=== PATIENT | female | born 1980 | race African-American/Black ===

== ENCOUNTER 2018-06-05 10:24 | Observation (INO) | payer SELFPAY ==
[2018-06-05 10:57] LABS: Absolute Lymphocytes (CBC) 1.4 K/uL (0.7-4.9); Absolute Monocytes 0.5 K/uL (0.1-1.3); Absolute Neutrophil 4.9 K/uL (1.8-8.0); Basophils % 0.6 % (0-1.3); Eosinophils % 0.7 % (0-4.4); Hematocrit 32.5 % (36.0-45.0); Lymphocytes % 19.9 % (15.3-44.8); MCV 74.1 fL (80-100); Monocytes % 7.1 % (3.3-12.3); RBC Red Blood Cell Count 4.39 M/uL (3.86-4.86)
[2018-06-05] MEDS ORDERED: NA CHLORIDE 0.9% 1,000 ML ONE ×2 (10:59→12:04)
[2018-06-05] MEDS ORDERED: EPINEPHRINE/PF 1 MG/ML AMP ONE (10:59)
[2018-06-05] MEDS ORDERED: METHYLPREDNISOLONE 125 MG INJ ONE (10:59)
[2018-06-05] MEDS ORDERED: FAMOTIDINE 20 MG/2 ML VIAL IV ONE (11:00)
[2018-06-05 11:03] LABS: Potassium 3.4 mmol/L (3.5-5.1)
--- NOTE | 2018-06-05 12:00 | EDPHYS ---
Physician Documentation [facility] Name: Jose Velez Age: 38 yrs Sex: Female : 1980 Arrival Date: 06/05/2018 Time: 10:25 Bed 4 Private MD: None, None ED Physician Arnold Maldonado HPI: 06/05 11:43 This 38 yrs old Black Female presents to ER via Ambulatory with complaints of Allergic gs Reaction. 11:43 The patient presents with swelling of the lips. Onset: The symptoms/episode gs began/occurred acutely, just prior to arrival. Associated signs and symptoms: Pertinent negatives: chest pain, Light headed shortness of breath, Syncope. Possible causes: KARLY inhibitor. Severity of symptoms: At their worst the symptoms were moderate in the emergency department the symptoms are unchanged. The patient has not experienced similar symptoms in the past. 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 - Social history:: Smoking status: Patient/guardian denies using tobacco. - Ebola Screening: : Patient negative for fever greater than or equal to 101.5 degrees Fahrenheit, and additional compatible Ebola Virus Disease symptoms Patient denies exposure to infectious person Patient denies travel to an Ebola-affected area in the 21 days before illness onset No symptoms or risks identified at this time. ROS: 11:56 All other systems are negative. gs Exam: 11:56 Neck: Trachea midline, no thyromegaly or masses palpated, and no cervical gs lymphadenopathy. Supple, full range of motion without nuchal rigidity, or vertebral point tenderness. No Meningismus. Chest/axilla: Normal chest wall appearance and motion. Nontender with no deformity. No lesions are appreciated. Cardiovascular: Regular rate and rhythm with a normal S1 and S2. No gallops, murmurs, or rubs. Normal PMI, no JVD. No pulse deficits. Abdomen/GI: Soft, non-tender, with normal bowel sounds. No distension or tympany. No guarding or rebound. No evidence of tenderness throughout. Back: No spinal tenderness. No costovertebral tenderness. Full range of motion. Skin: Warm, dry with normal turgor. Normal color with no rashes, no lesions, and no evidence of cellulitis. MS/ Extremity: Pulses equal, no cyanosis. Neurovascular intact. Full, normal range of motion. Neuro: Awake and alert, GCS 15, oriented to person, place, time, and situation. Cranial nerves II-XII grossly intact. Motor strength 5/5 in all extremities. Sensory grossly intact. Cerebellar exam normal. Normal gait. 11:56 Constitutional: The patient appears alert, awake. 11:56 Head/face: Noted is swelling, that is moderate, of the right eye, right cheek and right zygomatic area. 11:56 ENT: Mouth: Lips: swelling, Posterior pharynx: no acute changes, pooling of secretions, is not appreciated. 11:56 Neck: Exam negative for acute changes. 11:56 Respiratory: the patient does not display signs of respiratory distress, Respirations: normal, Breath sounds: are clear throughout, stridor, is not appreciated. Vital Signs: 10:36 BP 108 / 80; Pulse 102; Resp 23; Pulse Ox 100% ; Weight 86.18 kg; Height 5 ft. 5 in. bp (165.10 cm); 10:38 Temp 98.2(TE); jb1 11:00 BP 98 / 72; Pulse 80; Resp 20; Pulse Ox 100% ; bp 12:08 BP 99 / 72; Pulse 77; Resp 23; Pulse Ox 99% ; bp 10:36 Body Mass Index 31.62 (86.18 kg, 165.10 cm) bp MDM: 10:26 Patient medically screened. gs 11:56 Differential diagnosis: anaphylaxis, angioedema, bronchospasm, non IgE mediated drug gs reaction. Data reviewed: vital signs, nurses notes. Response to treatment: the patient's symptoms have mildly improved after treatment, and as a result, I will admit patient. 06/05 10: Order name: CBC with Diff; Complete Time: 11:42 gs 06/05 10: Order name: Basic Metabolic Panel; Complete Time: 11:42 gs Administered Medications: 10: Drug: Pepcid 20 mg Route: IVP; Site: right antecubital; bp 12:09 Follow up: Response: No change in condition bp 10:27 Drug: SOLU-Medrol 125 mg Route: IVP; Site: right antecubital; bp 12:09 Follow up: Response: No change in condition bp 10: Drug: EPINEPHrine 1mg/mL 1:1,000 0.2 ml Route: Sub-Q; Site: right upper arm; bp 12:09 Follow up: Response: No change in condition bp 11:00 Drug: NS 0.9% 1000 ml Route: IV; Rate: 125 ml/hr; Site: right antecubital; bp 12:00 Drug: NS 0.9% 1000 ml Route: IV; Rate: 1 bolus; Site: right antecubital; aa5 Disposition: 06/05/18 11:59 Hospitalization ordered by Maureen Dick for Observation. Preliminary diagnosis is Angioneurotic edema. - Bed requested for Telemetry/MedSurg (observation). - Status is Observation. bp - Condition is Stable. - Problem is new. - Symptoms have improved. UTI on Admission? No Critical care time excluding procedures: 11:56 Critical care time: Bedside Care: 10 minutes, Consultation: 10 minutes, Family gs Intervention: 10 minutes. Total time: 30 minutes Signatures: Dispatcher [employer] EDThu Jeronimo RN Casandra Quinones RN RN dw Calderon, Audri, RN RN aa Arnold Maldonado MD MD gs Peltier, Brian, RN RN bp Corrections: (The following items were deleted from the chart) 12:52 11:59 Hospitalization Ordered by Maureen Dick MD for Observation. Preliminary dw diagnosis is Angioneurotic edema. Bed requested for Telemetry/MedSurg (observation). Status is Observation. Condition is Stable. Problem is new. Symptoms have improved. UTI on Admission? No. gs 14:10 12:52 06/05/2018 11:59 Hospitalization Ordered by Maureen Dick MD for Observation. bp Preliminary diagnosis is Angioneurotic edema. Bed requested for Telemetry/MedSurg (observation). Status is Observation. Condition is Stable. Problem is new. Symptoms have improved. UTI on Admission? No. dw
--- NOTE | 2018-06-05 12:00 | ER ---
Nurse's Notes [facility] Name: Jose Velez Age: 38 yrs Sex: Female : 1980 Arrival Date: 06/05/2018 Time: 10:25 Bed 4 Private MD: None, None Diagnosis: Angioneurotic edema Presentation: 06/05 10:25 Presenting complaint: Patient states: pt took a blue pill BO1 last night at 2300 sv thinking it was Aleve. Pt has significant swelling to right side of face and lips. Transition of care: patient was not received from another setting of care. Onset: The symptoms/episode began/occurred acutely, this morning. Anaphylaxis evaluation, angioedema. Onset of symptoms was June 05, 2018. Care prior to arrival: None. 10:25 Method Of Arrival: Ambulatory sv 10:25 Acuity: DARRIN 2 sv 13:27 Risk Assessment: Do you want to hurt yourself or someone else? Patient reports no bp desire to harm self or others. Initial Sepsis Screen: Does the patient meet any 2 criteria? No. Patient's initial sepsis screen is negative. Does the patient have a suspected source of infection? No. Patient's initial sepsis screen is negative. Triage Assessment: 10:25 General: Appears distressed, uncomfortable, Behavior is cooperative, anxious. EENT: sv upper and lower lip swelling and tongue swelling. Neuro: Level of Consciousness is awake, alert, obeys commands, Oriented to person, place, time, situation, Moves all extremities. Full function Gait is steady. Respiratory: Respiratory effort is even, unlabored, Respiratory pattern is symmetrical, tachypnea. 10:35 General: Appears distressed, uncomfortable, Behavior is cooperative, appropriate for bp age, anxious. Pain: Denies pain. EENT: SWOLLEN LIPS AND TONGUE. [employer]: 10:36 LMP N/A - Irregular menses bp Historical: - Allergies: 10:26 No Known Allergies; sv - Immunization history:: Adult Immunizations up to date. - Social history:: Smoking status: Patient/guardian denies using tobacco. - Ebola Screening: : Patient negative for fever greater than or equal to 101.5 degrees Fahrenheit, and additional compatible Ebola Virus Disease symptoms Patient denies exposure to infectious person Patient denies travel to an Ebola-affected area in the 21 days before illness onset No symptoms or risks identified at this time. Screenin:44 Abuse screen: Denies threats or abuse. Denies injuries from another. Nutritional bp screening: No deficits noted. Tuberculosis screening: No symptoms or risk factors identified. Fall Risk None identified. Assessment: 10:25 General: Appears distressed, uncomfortable, obese, Behavior is cooperative, appropriate bp for age, anxious. Pain: Denies pain. Neuro: Level of Consciousness is awake, alert, obeys commands, Oriented to person, place, time, situation, Appropriate for age. Cardiovascular: No deficits noted. Respiratory: Airway is compromised Respiratory effort is even, unlabored, Respiratory pattern is regular, symmetrical, Breath sounds are clear bilaterally. GI: No signs and/or symptoms were reported involving the gastrointestinal system. : No signs and/or symptoms were reported regarding the genitourinary system. EENT: SWOLLEN LIPS/TONGUE. Derm: No deficits noted. Musculoskeletal: Circulation, motion, and sensation intact. Range of motion: intact in all extremities. 11:03 Reassessment: NO NOTED CHANGED TO ANGIOEDEMA, PT RESP REMAINS EVEN AND UNLABORED. bp 12:07 Reassessment: NO NOTABLE IMPROVEMENT TO ANGIOEDEMA, ADMIT IN PROCESS. bp Vital Signs: 10:36 BP 108 / 80; Pulse 102; Resp 23; Pulse Ox 100% ; Weight 86.18 kg; Height 5 ft. 5 in. bp (165.10 cm); 10:38 Temp 98.2(TE); jb1 11:00 BP 98 / 72; Pulse 80; Resp 20; Pulse Ox 100% ; bp 12:08 BP 99 / 72; Pulse 77; Resp 23; Pulse Ox 99% ; bp 10:36 Body Mass Index 31.62 (86.18 kg, 165.10 cm) bp ED Course: 10:25 Patient arrived in ED. mr 10:25 None, None is Private Physician. mr 10:25 Inserted saline lock: 20 gauge in right antecubital area, using aseptic technique. bp 10:26 Arnold Maldonado MD is Attending Physician. gs 10:26 Triage completed. sv 10:26 Arm band placed on. sv 10:34 Homero Fung, MARVA is Primary Nurse. bp 10:44 Patient has correct armband on for positive identification. Bed in low position. Call bp light in reach. Side rails up X2. clinical research monitor on. Pulse ox on. NIBP on. 11:58 Maureen Dick MD is Hospitalizing Provider. gs 13:26 No provider procedures requiring assistance completed. Patient admitted, IV remains in bp place. Administered Medications: 10:27 Drug: Pepcid 20 mg Route: IVP; Site: right antecubital; bp 12:09 Follow up: Response: No change in condition bp 10:27 Drug: SOLU-Medrol 125 mg Route: IVP; Site: right antecubital; bp 12:09 Follow up: Response: No change in condition bp 10:27 Drug: EPINEPHrine 1mg/mL 1:1,000 0.2 ml Route: Sub-Q; Site: right upper arm; bp 12:09 Follow up: Response: No change in condition bp 11:00 Drug: NS 0.9% 1000 ml Route: IV; Rate: 125 ml/hr; Site: right antecubital; bp 12:00 Drug: NS 0.9% 1000 ml Route: IV; Rate: 1 bolus; Site: right antecubital; aa5 Outcome: 11:59 Decision to Hospitalize by Provider. gs 13:27 Condition: stable bp 13:27 Instructed on the need for admit. 13:33 Admitted to Tele accompanied by tech, via wheelchair, room 212, with chart, Report bp called to MANUEL DURHAM 14:10 Patient left the ED. bp Signatures: Adam Montano jbThu Mar, RN RN Cherry Manzo mr Bishop, Mona RN RN aa5 Arnold Maldonado MD MD Homero Fung RN RN bp
[2018-06-05] MEDS ORDERED: ONDANSETRON 4 MG/2 ML VIAL IV PRN (14:01)
[2018-06-05] MEDS: NA CHLORIDE 0.9% 1,000 ML IV SCH ×2 (14:01→19:19)
[2018-06-05] MEDS ORDERED: DIPHENHYDRAMINE 50 MG/ML VIAL IV SCH (14:01)
[2018-06-05] MEDS ORDERED: EPINEPHRINE 1 MG/ML VIAL SQ ONE (15:41)
--- NOTE | 2018-06-05 15:57 | P.HP ---
Certification for Inpatient Patient admitted to: Observation With expected LOS: <2 Midnights Patient will require the following post-hospital care: None Practitioner: I am a practitioner with admitting privileges, knowledge of patient current condition, hospital course, and medical plan of care. Services: Services provided to patient in accordance with Admission requirements found in Title 42 Section 412.3 of the Code of Federal Regulations Patient History Date of Service: 06/05/18 Primary Care Provider: None Reason for admission: Angioedema History of Present Illness: 38 y/o F with No PMHx presented to the ED after she took lisinopril this AM at 11AM thinking it was Aleve. Pt started noticing her right face swell and got worries and thus decided to come to the ER. Patient has never had similar Complains in the past. Denies having SOB, chest pain, trouble swallowing or have not seen tongue swelling. Allergies lisinopril Allergy (Verified 06/05/18 13:39) Anaphylaxis Home Medications: NK [No Home Meds] 06/05/18 - Past Medical/Surgical History Has patient received pneumonia vaccine in the past: No Diabetic: No Past Medical History: Patient denies medical history Past Surgical History: Patient denies surgical history - Family History Family History: Reviewed- Non-Contributory - Social History Smoking Status: Never smoker Smoking therapy provided: No Patient receptive to therapy: No Alcohol use: Yes CD- Drugs: No Caffeine use: Yes Place of Residence: Home Review of Systems 10-point ROS is otherwise unremarkable Physical Examination - Vital Signs Temperature: 98.2 F Blood Pressure: 99/72 Pulse: 77 Respirations: 23 - Physical Exam General: Alert, In no apparent distress HEENT: Atraumatic, PERRLA, Mucous membr. moist/pink, Other (Right Face Swollen and Upper and lower lip swelling noted. ), EOMI, Sclerae nonicteric Neck: Supple, 2+ carotid pulse no bruit, No LAD, Without JVD or thyroid abnormality Respiratory: Clear to auscultation bilaterally, Normal air movement Cardiovascular: Regular rate/rhythm, Normal S1 S2 Gastrointestinal: Normal bowel sounds, No tenderness Musculoskeletal: No tenderness Integumentary: No rashes Neurological: Normal gait, Normal speech, Normal strength at 5/5 x4 extr, Normal tone, Normal affect Lymphatics: No axilla or inguinal lymphadenopathy - Studies Laboratory Data (last 24 hrs) 06/05/18 10:40: Sodium 138, Potassium 3.4 L, BUN 12, Creatinine 0.90, Glucose 112 H 06/05/18 10:40: WBC 6.8, Hgb 10.1 L, Hct 32.5 L, Plt Count 420 H Assessment and Plan - Problems (Diagnosis) (1) Angio-edema Current Visit: Yes Status: Acute Plan: Angioedema 2.2 to KARLY inhibitor w/o Respiratory Compromise -Benadryl 50mg q6h -Methylprednisone 40mg q8h -Epi x 1 Qualifiers: Encounter type: initial encounter Qualified Code(s): T78.3XXA - Angioneurotic edema, initial encounter Discharge Plan: Home Plan to discharge in: 48 Hours - Advance Directives Does patient have a Living Will: No Does patient have a Durable POA for Healthcare: No - Code Status/Comfort Care Code Status Assessed: Yes Critical Care: No
[2018-06-05] MEDS ORDERED: DIPHENHYDRAMINE 25 MG TAB/CAP PO SCH (16:00)
[2018-06-05] MEDS: DIPHENHYDRAMINE 25 MG TAB/CAP PO SCH ×2 (16:02→22:16)
[2018-06-05] MEDS: METHYLPREDNISOLONE 40 MG INJ IV SCH (16:03)
[2018-06-05 18:34] LABS: Urine Appearance CLEAR; Urine Bilirubin NEGATIVE (NEG); Urine Blood NEGATIVE (NEG); Urine Color YELLOW; Urine Glucose 3+ (NEG); Urine Protein NEGATIVE (NEG); Urine Specific Gravity 1.015 (1.005-1.030); Urine Urobilinogen 0.2 mg/dL (0.2-1.0); Urine pH 5.5 (5.0-7.0)
[2018-06-05 18:37] LABS: Urine Microscopic Reflex ORDER UMIC
[2018-06-05 18:48] LABS: Urine Culture Reflex Order REFLEXED; Urine RBC <5 /HPF (NONE SEEN)
[2018-06-05 18:50] LABS: Urine Bacteria 20-50 /HPF (<20)
[2018-06-06] MEDS: NA CHLORIDE 0.9% 1,000 ML IV SCH ×3 (01:08→17:33)
[2018-06-06] MEDS: METHYLPREDNISOLONE 40 MG INJ IV SCH ×3 (01:08→17:33)
[2018-06-06] MEDS: ACETAMINOPHEN 500 MG TAB PO PRN ×2 (03:55→17:32)
[2018-06-06] MEDS: DIPHENHYDRAMINE 25 MG TAB/CAP PO SCH ×4 (03:56→21:57)
[2018-06-06 06:27] LABS: Absolute Lymphocytes (CBC) 0.4 K/uL (0.7-4.9); Absolute Monocytes 0.3 K/uL (0.1-1.3); Absolute Neutrophil 9.7 K/uL (1.8-8.0); Basophils % 0.1 % (0-1.3); Hematocrit 29.3 % (36.0-45.0); MCH 23.6 pg (27.0-35.0); MCV 74.9 fL (80-100); MPV 8.1 fL (7.6-11.3); Monocytes % 3.2 % (3.3-12.3); RBC Red Blood Cell Count 3.92 M/uL (3.86-4.86)
[2018-06-06 06:47] LABS: ALT/SGPT 21 U/L (12-78); AST/SGOT 13 U/L (15-37); Albumin 3.1 g/dL (3.4-5.0); Alkaline Phosphatase 39 U/L (45-117); BUN Blood Urea Nitrogen 9 mg/dL (7-18); Bicarbonate 20 mmol/L (21-32); Bilirubin Total 0.2 mg/dL (0.2-1.0); Glucose Level 154 mg/dL (74-106); Potassium 4.3 mmol/L (3.5-5.1); Sodium Level 139 mmol/L (136-145)
[2018-06-06 07:05] LABS: Anisocytosis 1+; Blood Morphology Comment NOTED (NOT SEEN); Platelet Estimate INCR; Poikilocytosis 1+; Spherocyte 1+; Urine White Blood Cell Casts OK
[2018-06-06] MEDS ORDERED: EPINEPHrine 1 MG/10 ML SYR IV ONE (09:49)
[2018-06-06] MEDS ORDERED: EPINEPHRINE 1 MG/ML VIAL SQ ONE (11:00)
--- NOTE | 2018-06-06 11:12 | P.PN ---
Subjective Date of Service: 06/06/18 Primary Care Provider: None Chief Complaint: Angioedema Subjective: Tolerating diet, Ambulating, Improving, Working w/ PT, Doing well Review of Systems 10-point ROS is otherwise unremarkable Physical Examination - Vital Signs Temperature: 97.9 F Blood Pressure: 119/69 Pulse: 92 Respirations: 16 Pulse Ox (%): 99 - Physical Exam General: Alert, In no apparent distress HEENT: Atraumatic, PERRLA, EOMI Neck: Supple, JVD not distended, Other (Facial Swelling improving with Lower lip swelling improved markedly \) Respiratory: Clear to auscultation bilaterally, Normal air movement Cardiovascular: Regular rate/rhythm, Normal S1 S2 Gastrointestinal: Normal bowel sounds, No tenderness Musculoskeletal: No tenderness Integumentary: No rashes Neurological: Normal speech, Normal tone, Normal affect Lymphatics: No axilla or inguinal lymphadenopathy - Studies Medications List Reviewed: Yes Assessment And Plan - Current Problems (Diagnosis) (1) Angio-edema Onset Date: 06/06/18 Current Visit: Yes Status: Acute Plan: Angioedema 2.2 to KARLY inhibitor w/o Respiratory Compromise -Benadryl 50mg q6h -Methylprednisone 40mg q8h -Epi x 1 today as well Qualifiers: Encounter type: initial encounter Qualified Code(s): T78.3XXA - Angioneurotic edema, initial encounter Discharge Plan: Home Plan to discharge in: 24 Hours - Code Status/Comfort Care Code Status Assessed: Yes Critical Care: No
[2018-06-07] MEDS: METHYLPREDNISOLONE 40 MG INJ IV SCH ×2 (00:11→08:51)
[2018-06-07] MEDS: NA CHLORIDE 0.9% 1,000 ML IV SCH (00:14)
[2018-06-07] MEDS: DIPHENHYDRAMINE 25 MG TAB/CAP PO SCH ×2 (03:17→08:52)
[2018-06-07 04:58] LABS: Absolute Lymphocytes (CBC) 0.6 K/uL (0.7-4.9); Absolute Monocytes 0.4 K/uL (0.1-1.3); Absolute Neutrophil 12.2 K/uL (1.8-8.0); Hematocrit 28.7 % (36.0-45.0); Lymphocytes % 4.9 % (15.3-44.8); MCH 22.7 pg (27.0-35.0); MCV 73.6 fL (80-100); MPV 8.2 fL (7.6-11.3); Monocytes % 3.1 % (3.3-12.3)
[2018-06-07 05:04] LABS: ALT/SGPT 21 U/L (12-78); AST/SGOT 15 U/L (15-37); Albumin 3.1 g/dL (3.4-5.0); Alkaline Phosphatase 33 U/L (45-117); BUN Blood Urea Nitrogen 7 mg/dL (7-18); Bicarbonate 24 mmol/L (21-32); Bilirubin Total 0.2 mg/dL (0.2-1.0); Glucose Level 141 mg/dL (74-106); Potassium 4.3 mmol/L (3.5-5.1); Protein, Total 7.1 g/dL (6.4-8.2); Sodium Level 141 mmol/L (136-145)
[2018-06-07] MEDS: ACETAMINOPHEN 500 MG TAB PO PRN (08:51)
[2018-06-07 13:53] LABS: Specific Gravity <= 1.005 (1.005-1.030)
--- NOTE | 2018-06-08 04:28 | DS ---
Date of Discharge: 06/07/2018 Admitting Diagnosis: Angioedema. Discharge Diagnoses: 1. Angioedema secondary to KARLY inhibitor. 2. Obesity, BMI 32.6. 3. Irregular menstrual cycle. 4. Acute cystitis without hematuria secondary to gram-negative bacteria. 5. Microcytic hypochromic anemia with iron deficiency anemia. Hospital Course: The patient is a 38-year-old female with no significant past medical history, comes in with angioedema following accidental ingestion of lisinopril. The patient thought it was Aleve as it was in bottle at her friend' s house. The patient denies any trouble swallowing or any shortness of breath. The patient was started on Solu-Medrol and Benadryl and was given epinephrine x1. The patient's workup did reveal some microcytic anemia. Her white count was initially normal and she did have some steroid-induced leukocytosis. No signs of sepsis. The patient did have some mild hypokalemia, which was replaced. Her UA was abnormal and her urine culture grew out gram-negative rods. ID is currently pending. I did speak that microbiology lab should be updated later this afternoon. The patient's symptoms improved. Her swelling has greatly improved significantly, and not quite resolved. She denies any further shortness of breath or difficulty swallowing. The patient was able to ambulate without getting short of breath. No desaturation. The patient was then cleared for discharge and was sent home in stable condition. Activity: As tolerated. No driving or operating heavy machinery while on sedated medications. Diet: Calorie restricted diet. The patient encouraged to lose weight with diet and exercise regimen. Followup: With primary care physician in 2 to 3 days. Return to ER for worsening condition. Medications: As per medication reconciliation list. The patient to carry EpiPen with her. Continue Benadryl and steroid taper. The patient was also discharged on antibiotics for her UTI. Physical Examination: General: Awake, alert, oriented, in no acute distress. Obese female. CV: S1, S2. No murmurs. Respiratory: Moving air well bilaterally. Abdomen: Soft, nontender, nondistended. Positive bowel sounds. Extremities: No clubbing, cyanosis, or edema. HEENT: The patient does have some mild swelling of her eyes, lips, and throat. No swelling. No erythema. Oropharynx is clear. ADDENDUM: patients LMP in March. Patient had recent miscarriage 2 weeks prior. /LYNN Voice ID: [id number] Report ID: [id number] MTDIris
== END 2018-06-07 14:45 | disposition home or self-care (01) ==
LOC: ER 10:24 → ERHOLD 12:21 → 2ND 13:37
PROVIDERS: ADMIT Family Medicine; ATTEND Family Medicine
DX: T78.3XXA Angioneurotic edema, initial encounter (principal); T88.7XXA Unspecified adverse effect of drug or medicament, initial encounter; T46.4X5A Adverse effect of angiotensin-converting-enzyme inhibitors, initial encounter; N30.00 Acute cystitis without hematuria; N92.6 Irregular menstruation, unspecified; D50.9 Iron deficiency anemia, unspecified
CPT/HCPCS: 36415; 80048; 80053; 81003; 81015; 81025; 85025; 87077; 87086; 87088; 87186; 96372; 96374; 96375; 99285; G0378; J0171; J2920; J2930; J7030